=== PATIENT | female | born 1940 | race Caucasian/White ===

== ENCOUNTER 2016-10-17 07:38 | Day surgery (SDC) | payer MEDICARE ==
[~2016-10-17 07:38] MED LIST: ASPIRIN EC81 MG PO; BENADRYL25 M3 PO; CALAN SR240 M1 PO; CALCIUM 600 +1 EA10 PO; HYDROCHLOROTHIA25 M1 PO; XANAX0.25 M1 PO; ZOCOR10 M1 PO
[2016-10-17 08:27] LABS: BASO % 0.2 % (0-2); EOS % 1.8 % (0-7); EOSINOPHIL ABSOLUTE COUNT 0.1 tho/cmm (0.0-0.7); HCT-HEMATOCRIT 43.5 % (34.0-49.0); LYMPH % 30.4 % (20-45); LYMPH ABSOLUTE COUNT 1.4 tho/cmm (0.8-4.5); MCH (MEAN CORPUSCULAR HGB) 30.1 pg (28.0-32.0); MCHC MEAN CORPUSCULAR HGB CONC 34.5 % (32.0-36.0); MCV (MEAN CELL VOLUME) 87.2 fl (82.0-96.0); MEAN PLATELET VOLUME 9.8 cmc (9.4-12.4); MONO % 9.8 % (0-12); MONOCYTE ABSOLUTE COUNT 0.4 tho/cmm (0.0-1.2); NEUTROPHIL ABSOLUTE COUNT 2.6 tho/cmm (1.6-8.0); NEUTROPHIL-AUTOMATED 2.6 tho/cmm (1.6-8.0); NEUTROPHILS % 57.8 % (40-80); PLATELET COUNT 202 tho/cmm (150-450); RED BLOOD COUNT 4.99 mil/cmm (4.00-5.20); RED CELL DISTRIBUTION WIDTH 12.6 % (12.4-16.4); WHITE BLOOD COUNT 4.5 tho/cmm (4.0-10.0)
[2016-10-17 08:30] LABS: PROTHROMBIN TIME 12.1 SECONDS (9.0-13.6)
[2016-10-17 08:44] LABS: ANION GAP 11 mmol/L (0-20); BLOOD UREA NITROGEN 16 mg/dl (6-24); CALCIUM 9.5 mg/dl (8.5-10.5); CARBON DIOXIDE-VENOUS 28 mmol/L (22-32); CHLORIDE 109 mmol/l (96-110); GLUCOSE 85 mg/dL (70-110); POTASSIUM 3.4 mmol/L (3.7-5.1); SODIUM 145 mmol/L (135-145); eGFR VALUE FOR BLACK >90 mL/Min
== END 2016-10-17 16:10 ==
LOC: RADSP 07:38 → SHSB 07:42
PROVIDERS: Surgery Vascular Surgery
PROC: 047C34Z Dilation of Right Common Iliac Artery with Drug-eluting Intraluminal Device, Percutaneous Approach (ICD-10-PCS; principal; 2016-10-17)
DX: I77.1 Stricture of artery (principal); Z79.899 Other long term (current) drug therapy
CPT/HCPCS: C1760; C1769; C1876; C1894; J1644; J2250; J2405; J3010; J7030; Q9967